=== PATIENT | male | born 1955 | race Caucasian/White ===

== ENCOUNTER 2021-01-23 07:05 | Day surgery (SDC) | payer MEDICAID ==
[2021-01-22 07:09] LABS: COVID AG,FIA SOURCE NASOPHARYNGEAL
[~2021-01-23] VITALS: Ht 162.6 cm; Wt 42.7 kg
[~2021-01-23 07:05] MED LIST: SODIUM CHLORIDE 0.9% 1,000 ML IV ONE
[2021-01-23] MEDS ORDERED: LIDOCAINE 2% 30 ML JELLY TP ONE (07:06)
[2021-01-23] MEDS ORDERED: LIDOCAINE 4% 50 ML SOLUTION TP ONE (07:06)
[2021-01-23] MEDS ORDERED: BENZOCAINE 20% 50 MCG/SPRAY 57 GM TP ONE (07:06)
[2021-01-23] MEDS ORDERED: FentaNYL CITRATE PF 100 MCG/2 ML VIAL ONE (07:59)
[2021-01-23] MEDS ORDERED: MIDAZOLAM HCL 2 MG/2 ML VIAL ONE (07:59)
[2021-01-23] MEDS ORDERED: SODIUM CHLORIDE 0.9% 1,000 ML ONE (07:59)
[2021-01-23] MEDS ORDERED: MethylPREDNISolone SOD SUCC 125 MG/2 ML VIAL IVP ONE (09:15)
[2021-01-23] MEDS ORDERED: MethylPREDNISolone SOD SUCC 125 MG/2 ML VIAL ONE (10:34)
[2021-01-23] MEDS ORDERED: OXYGEN THERAPY IH SCH ×2 (20:00)
== END 2021-01-23 11:25 | disposition home or self-care (01) ==
LOC: SURGERY 07:05
PROVIDERS: ATTEND Internal Medicine Critical Care Medicine
DX: B37.0 Candidal stomatitis (principal); J38.4 Edema of larynx; I10 Essential (primary) hypertension; F17.210 Nicotine dependence, cigarettes, uncomplicated; Z72.89 Other problems related to lifestyle; Z79.899 Other long term (current) drug therapy; Z98.890 Other specified postprocedural states
CPT/HCPCS: 31623; 31624; 71045; 87015; 87070; 87101; 87205; 87206; 87220; 87426; 88108; 88184; 88185; 88312; C9803; J2250; J2930; J3010; J7030; Z7610